=== PATIENT | male | born 1995 | race Caucasian/White ===

== ENCOUNTER 2017-11-23 19:23 | Inpatient (IN) | payer MEDICAID ==
[~2017-11-23] VITALS: Ht 146.1 cm; Wt 43.1 kg
[~2017-11-23 19:23] MED LIST: HYDR2.5C TOPICAL; KETO2CRE TOPICAL; SYNT25TA PO
[2017-11-23 19:37] VITALS: BP 116/60; PULSE 119; RESP 22; TEMP 101.7; O2SAT 94
[2017-11-23] MEDS ORDERED: KETOROLAC TROMETHAMINE 30 MG/ML (IVP) VIAL IV PUSH ONE (21:30)
[2017-11-23] MEDS ORDERED: SODIUM CHLOR 0.9% 1000 ML INJ 1,000 ML IV ONE (21:30)
--- NOTE | 2017-11-23 21:55 | RADRPT ---
EXAM DATE/TIME: 11/23/2017 21:26 [place] COMPARISON: No previous studies available for comparison. INDICATIONS : Fever, cough. MEDICAL HISTORY : Downs Syndrome SURGICAL HISTORY : Open heart ENCOUNTER: Initial ACUITY: 3 days PAIN SCORE: Non-responsive. LOCATION: Bilateral chest FINDINGS: Mild infiltrate in the left lung base, probably lingular. Lungs otherwise appear clear. No pleural ef fusion. No pneumothorax. Heart size stable, within normal limits. Median sternotomy changes are again noted. There is S. shaped thoracolumbar curvature noted, moderate to severe and considerably worse since 201 1. CONCLUSION: Early/mild lingular pneumonia suspected. Worsening scoliosis. Anthony Delgado MD on November 23, 2017 at 21:52 Board Certified Radiologist. This report was verified electronically.
[2017-11-23 22:13] VITALS: PULSE 98; RESP 20; TEMP 100.8; O2SAT 95
--- NOTE | 2017-11-23 22:23 | PD ---
HPI Chief Complaint: Fever Time Seen by Provider: 21:15 Travel History International Travel<30 days: No Contact w/Intl Traveler<30days: No Traveled to known affect area: No History of Present Illness HPI Patient is a 22-year-old male with history of Down syndrome, who is brought in by his mom and someone from his senior care due to fever. The senior care personnel states that he has had a cough for the past few days with runny nose. Today she noticed he was shivering and that he had a fever. They brought him here to be evaluated. Patient provides no history. PFSH Past Medical History Hx Anticoagulant Therapy: No Asthma: Yes ('outgrew' last episode 1 1/2 years ago) Autoimmune Disease: Yes (possibly compromised per mom but no dx from md) Blood Disorders: No Anxiety: No Depression: No Heart Rhythm Problems: No Cardiovascular Problems: Yes (Heart defect) Chemotherapy: No Chest Pain: No Cerebrovascular Accident: No Cystic Fibrosis: No Developmental Delay: Yes (AUTISTIC/DOWNS) Diabetes: No Diminished Hearing: No Gastrointestinal Disorders: No Genitourinary: Yes Headaches: No Hypertension: No Musculoskeletal: Yes Neurologic: Yes (AUTISTIC AND DOWNS) Psychiatric: No Reproductive: No Respiratory: No Integumentary: Yes (PSORIASIS) Immunizations Current: Yes Seizures: No Sickle Cell Disease: No Sleep Apnea: No Thyroid Disease: Yes Tetanus Vaccination: < 5 Years ?: Not Past Surgical History Abdominal Surgery: No Cardiac Surgery: Yes (OPEN HEART TO REPAIR WHOLE IN UPPER CHAMBER OF HEART 2004 ) Ear Surgery: No Endocrine Surgery: No Eye Surgery: No Genitourinary Surgery: No Gynecologic Surgery: No Hysterectomy: No Neurologic Surgery: No Oral Surgery: No Thoracic Surgery: No Other Surgery: No Social History Alcohol Use: No Tobacco Use: No Substance Use: No Allergies-Medications (Allergen,Severity, Reaction): Coded Allergies: cat dander (Unverified Allergy, Severe, 05/28/17) Reported Meds & Prescriptions Reported Meds & Active Scripts Active Reported Hydrocortisone Topical 2.5% Cream 1 Applic TOPICAL BID Ketoconazole Topical 2% Cream 1 Applic TOPICAL BID Synthroid (Levothyroxine Sodium) Unknown Strength Tab Unknown Dose PO DAILY Review of Systems ROS Limitations: Other: (Down syndrome and autism) Physical Exam Narrative GENERAL: Awake and alert, no acute distress. SKIN: Focused skin assessment warm/dry. Psoriatic lesions on the upper and lower extremities. No signs of infection. HEAD: Atraumatic. Normocephalic. EYES: Pupils equal and round. No scleral icterus. ENT: Mucous membranes pink and moist. NECK: Trachea midline. No JVD. CARDIOVASCULAR: Regular rate and rhythm. No murmur appreciated. RESPIRATORY: No accessory muscle use. Clear to auscultation. Breath sounds equal bilaterally. GASTROINTESTINAL: Abdomen soft, non-tender, nondistended. MUSCULOSKELETAL: No obvious deformities. No clubbing. No cyanosis. No edema. NEUROLOGICAL: Awake and alert. No obvious cranial nerve deficits. Moves all of his extremities. He does not speak. Data Data Last Documented VS Vital Signs Date Time Temp Pulse Resp B/P (MAP) Pulse Ox O2 Delivery O2 Flow Rate FiO2 11/23/17 22:13 100.8 98 20 95 Room Air 11/23/17 19:37 116/60 (78) Orders Orders Influenzae A/B Antigen (11/23/17 19:36) Iv Access Insert/Monitor (11/23/17 21:24) Complete Blood Count With Diff (11/23/17 21:24) Comprehensive Metabolic Panel (11/23/17 21:24) Chest, Single Ap (11/23/17 ) Ketorolac Inj (Toradol Inj) (11/23/17 21:30) Sodium Chlor 0.9% 1000 Ml Inj (Ns 1000 M (11/23/17 21:30) Ceftriaxone Inj (Rocephin Inj) (11/23/17 22:30) Azithromycin Inj (Zithromax Inj) (11/23/17 22:30) Blood Culture (11/23/17 22:49) Admit Order (Ed Use Only) (11/23/17 ) Labs Laboratory Tests Test 11/23/17 22:00 White Blood Count 14.2 TH/MM3 Red Blood Count 3.59 MIL/MM3 Hemoglobin 14.7 GM/DL Hematocrit 34.9 % Mean Corpuscular Volume 97.2 FL Mean Corpuscular Hemoglobin 41.0 PG Mean Corpuscular Hemoglobin Concent 42.2 % Red Cell Distribution Width 13.3 % Platelet Count 174 TH/MM3 Mean Platelet Volume 8.1 FL Neutrophils (%) (Auto) 85.8 % Lymphocytes (%) (Auto) 7.8 % Monocytes (%) (Auto) 5.8 % Eosinophils (%) (Auto) 0.2 % Basophils (%) (Auto) 0.4 % Neutrophils # (Auto) 12.2 TH/MM3 Lymphocytes # (Auto) 1.1 TH/MM3 Monocytes # (Auto) 0.8 TH/MM3 Eosinophils # (Auto) 0.0 TH/MM3 Basophils # (Auto) 0.1 TH/MM3 CBC Comment AUTO DIFF Differential Comment AUTO DIFF CONFIRMED Ovalocytes 1+ Blood Urea Nitrogen 12 MG/DL Creatinine 0.84 MG/DL Random Glucose 101 MG/DL Total Protein 7.7 GM/DL Albumin 3.2 GM/DL Calcium Level 8.2 MG/DL Alkaline Phosphatase 96 U/L Aspartate Amino Transf (AST/SGOT) 16 U/L Alanine Aminotransferase (ALT/SGPT) 14 U/L Total Bilirubin 1.1 MG/DL Sodium Level 140 MEQ/L Potassium Level 3.6 MEQ/L Chloride Level 108 MEQ/L Carbon Dioxide Level 27.6 MEQ/L Anion Gap 4 MEQ/L Estimat Glomerular Filtration Rate 116 ML/MIN MDM Medical Decision Making Medical Screen Exam Complete: Yes Emergency Medical Condition: Yes Medical Record Reviewed: Yes Differential Diagnosis Pneumonia versus URI versus influenza Narrative Course Patient is a 22-year-old male who is brought in by his mother and someone from his senior care due to fever and cough. IV established, labs sent. Chest x-ray is concerning for pneumonia. He is given Toradol as well as a dose of Rocephin and azithromycin. Last 24 hours Impressions Chest X-Ray 11/23/17 0000 Signed Impressions: Service Date/Time: Thursday, November 23, 2017 21:26 - CONCLUSION: Early/mild lingular pneumonia suspected. Worsening scoliosis. Anthony Delgado MD Labs show an elevated WBC count to 14. There is concern that due to patient's history of down syndrome and autism he will not be adequately treated as an outpatient as he does not take medications well. He will be admitted for treatment of pneumonia. Diagnosis Primary Impression: Pneumonia Qualified Codes: J18.9 - Pneumonia, unspecified organism Admitting Information Admitting Physician Requests: it Aicha Cisneros MD Nov 23, 2017 22:23
[2017-11-23 22:25] LABS: CHLORIDE 108 MEQ/L (98-107); SODIUM (NA) 140 MEQ/L (136-145)
[2017-11-23 22:29] LABS: ALBUMIN 3.2 GM/DL (3.4-5.0); CALCIUM 8.2 MG/DL (8.5-10.1)
[2017-11-23 22:30] LABS: BICARBONATE 27.6 MEQ/L (21.0-32.0); BLOOD UREA NITROGEN 12 MG/DL (7-18); GLUCOSE,RANDOM 101 MG/DL (74-106)
[2017-11-23] MEDS ORDERED: cefTRIAXone INJ 1,000 MG in SODIUM CHLORIDE 0.9% INJ 100 ML IV ONE (22:30)
[2017-11-23] MEDS ORDERED: AZITHROMYCIN INJ 500 MG in SODIUM CHLOR 0.9% 250 ML INJ 250 ML IV ONE (22:30)
[2017-11-23 22:32] LABS: ALT (GPT) 14 U/L (9-52)
[2017-11-23 22:33] LABS: AST (GOT) 16 U/L (15-39); CREATININE 0.84 MG/DL (0.60-1.30); GLOMERULAR FILTRATION RATE 116 ML/MIN (>89)
[2017-11-23 22:34] LABS: AUTOMATED NEUTROPHIL # 12.2 TH/MM3 (1.8-7.7); BASOPHIL # 0.1 TH/MM3 (0-0.2); BASOPHIL % 0.4 % (0.0-2.0); EOSINOPHIL % 0.2 % (0.0-4.0); HEMATOCRIT 34.9 % (39.0-51.0); HEMOGLOBIN 14.7 GM/DL (13.0-17.0); LYMPH % 7.8 % (9.0-44.0); LYMPHOCYTE # 1.1 TH/MM3 (1.0-4.8); MEAN CELL VOLUME 97.2 FL (80.0-100.0); MEAN PLATELET VOLUME 8.1 FL (7.0-11.0); MONO % 5.8 % (0.0-8.0); MONOCYTE # 0.8 TH/MM3 (0-0.9); NEUT % 85.8 % (16.0-70.0); PLATELET COUNT 174 TH/MM3 (150-450); RED BLOOD COUNT 3.59 MIL/MM3 (4.50-5.90); RED CELL DISTRIBUTION WIDTH 13.3 % (11.6-17.2); TOTAL BILIRUBIN ADULT 1.1 MG/DL (0.2-1.0); TOTAL PROTEIN 7.7 GM/DL (6.4-8.2); WHITE BLOOD COUNT 14.2 TH/MM3 (4.0-11.0)
[2017-11-23 22:35] LABS: ALKALINE PHOSPHATASE 96 U/L (45-117); MEAN CORPUSCULAR HGB CONC 42.2 % (32.0-36.0)
[2017-11-23 23:00] LABS: OVALOCYTES 1+ (NORMAL)
[2017-11-23] MEDS ORDERED: ACETAMINOPHEN 325 MG TAB PO PRN (23:00)
[2017-11-23] MEDS ORDERED: BISACODYL 10 MG SUPP RECTAL PRN (23:00)
[2017-11-23] MEDS ORDERED: NALOXONE HCL 0.4 MG/ML AMP IV PUSH PRN (23:00)
[2017-11-23] MEDS ORDERED: LACTULOSE SYRUP 20 GM/30 ML CUP PO PRN (23:00)
[2017-11-23] MEDS ORDERED: RESP: ALBUTEROL 2.5 MG/IPRATROPIUM 0.5 MG NEB (PRN) NEB (23:00)
[2017-11-23] MEDS ORDERED: MAGNESIUM HYDROXIDE SUSP 30 ML CUP PO PRN (23:00)
[2017-11-23] MEDS ORDERED: ONDANSETRON HCL 4 MG/2 ML VIAL IVP PRN (23:00)
[2017-11-23] MEDS ORDERED: SENNOSIDES 8.6 MG TAB PO PRN (23:00)
[2017-11-23 23:36] VITALS: BP 122/63; PULSE 95; RESP 16; TEMP 99.3; O2SAT 96
[2017-11-24 02:15] VITALS: BP 105/60; PULSE 84; RESP 18; TEMP 97.1; O2SAT 95
[2017-11-24] MEDS: SODIUM CHLOR 0.9% 1000 ML INJ 1,000 ML IV SCH ×3 (02:45→20:50)
[2017-11-24] MEDS: RESP: ALBUTEROL 2.5 MG/IPRATROPIUM 0.5 MG NEB (SCH) NEB ×4 (04:05→21:39)
[2017-11-24 05:42] VITALS: BP 100/52; PULSE 78; RESP 20
[2017-11-24 06:00] VITALS: PULSE 62; RESP 20; TEMP 98
[2017-11-24] MEDS: SODIUM CHLORIDE 0.9% FLUSH 10 ML FLUSH IV FLUSH SCH ×2 (09:00→20:45)
[2017-11-24 09:30] LABS: AUTOMATED NEUTROPHIL # 6.7 TH/MM3 (1.8-7.7); BASOPHIL # 0.1 TH/MM3 (0-0.2); EOSINOPHIL # 0.1 TH/MM3 (0-0.4); EOSINOPHIL % 0.7 % (0.0-4.0); HEMOGLOBIN 12.3 GM/DL (13.0-17.0); LYMPH % 17.5 % (9.0-44.0); LYMPHOCYTE # 1.6 TH/MM3 (1.0-4.8); MEAN CELL VOLUME 92.6 FL (80.0-100.0); MEAN CORPUSCULAR HEMOGLOBIN 31.6 PG (27.0-34.0); MEAN CORPUSCULAR HGB CONC 34.1 % (32.0-36.0); MONO % 9.6 % (0.0-8.0); MONOCYTE # 0.9 TH/MM3 (0-0.9); NEUT % 71.2 % (16.0-70.0); PLATELET COUNT 175 TH/MM3 (150-450); RED BLOOD COUNT 3.89 MIL/MM3 (4.50-5.90); WHITE BLOOD COUNT 9.4 TH/MM3 (4.0-11.0)
[2017-11-24 10:04] LABS: BICARBONATE 26.9 MEQ/L (21.0-32.0); CALCIUM 7.6 MG/DL (8.5-10.1)
[2017-11-24 10:08] LABS: CREATININE 0.73 MG/DL (0.60-1.30)
--- NOTE | 2017-11-24 10:51 | HHI.HP ---
[facility] Vinh Amos MD Admission Diagnosis pneumonia Diagnoses: Chief Complaint: Patient nonverbal, brought for fever Travel History International Travel<30 Days: No Contact w/Intl Traveler <30 Da: No Traveled to Known Affected Are: No History of Present Illness 22-year-old white male being admitted for sepsis secondary to possible pneumonia. History is obtained from the chart records, patient is not adequate historian due to mental impairment, no family at bedside. Patient was in his usual state of health until a few days ago when he was noted to have fever after coming home with his mother from the [place]. Patient was thus brought to the emergency department where he was noted to have a T fever of 101.7. Chest x-ray was obtained which I independently reviewed which shows a mild left lingular infiltrate at best. Blood cultures were obtained, patient was started on Rocephin and azithromycin. IV fluids were started. Nursing denies of any reports of any GI upset. 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, scoliosis Allergies: Coded Allergies: cat dander (Unverified Allergy, Severe, 05/28/17) Family History Unobtainable at this time Social History Has been living in a half-way Physical Exam Vital Signs Vital Signs Date Time Temp Pulse Resp B/P (MAP) Pulse Ox O2 Delivery O2 Flow Rate FiO2 11/24/17 06:00 98.0 62 20 11/24/17 05:42 78 20 100/52 (68) 11/24/17 02:15 97.1 84 18 105/60 (75) 95 11/23/17 23:36 99.3 95 16 122/63 (82) 96 Room Air 11/23/17 22:13 100.8 98 20 95 Room Air 11/23/17 21:07 20 11/23/17 19:37 101.7 119 22 116/60 (78) 94 Physical Exam VS: afebrile GENERAL: Lying in bed pronated with hips highly externally rotated bilaterally and knees flexed, in no acute distress, easily awoken, cooperates SKIN: Warm and dry. Scattered psoriatic plaques over her knees and elbows EYES: No scleral icterus. No injection or drainage. ENT: No nasal bleeding or discharge. Mucous membranes pink and moist. Tongue in chronically protruded position CARDIOVASCULAR: Regular rate and rhythm. no murmurs RESPIRATORY: No accessory muscle use. Clear to auscultation. Breath sounds equal bilaterally. GASTROINTESTINAL: Abdomen soft, non-tender, nondistended. Extremities: No clubbing, cyanosis, or edema. No obvious deformities. MUSCULOSKELETAL: adequate muscle bulk and tone for age and habitus NEUROLOGICAL: Awake and alert. No obvious cranial nerve deficits. No facial droop nor slurred speech noted. PSYCHIATRIC: Appropriate mood and affect; insight and judgment normal. Laboratory Laboratory Tests Test 11/23/17 22:00 11/24/17 08:30 White Blood Count 14.2 9.4 Red Blood Count 3.59 3.89 Hemoglobin 14.7 12.3 Hematocrit 34.9 36.0 Mean Corpuscular Volume 97.2 92.6 Mean Corpuscular Hemoglobin 41.0 31.6 Mean Corpuscular Hemoglobin Concent 42.2 34.1 Red Cell Distribution Width 13.3 13.0 Platelet Count 174 175 Mean Platelet Volume 8.1 8.0 Neutrophils (%) (Auto) 85.8 71.2 Lymphocytes (%) (Auto) 7.8 17.5 Monocytes (%) (Auto) 5.8 9.6 Eosinophils (%) (Auto) 0.2 0.7 Basophils (%) (Auto) 0.4 1.0 Neutrophils # (Auto) 12.2 6.7 Lymphocytes # (Auto) 1.1 1.6 Monocytes # (Auto) 0.8 0.9 Eosinophils # (Auto) 0.0 0.1 Basophils # (Auto) 0.1 0.1 CBC Comment AUTO DIFF DIFF FINAL Differential Comment AUTO DIFF CONFIRMED Ovalocytes 1+ Blood Urea Nitrogen 12 11 Creatinine 0.84 0.73 Random Glucose 101 77 Total Protein 7.7 Albumin 3.2 Calcium Level 8.2 7.6 Alkaline Phosphatase 96 Aspartate Amino Transf (AST/SGOT) 16 Alanine Aminotransferase (ALT/SGPT) 14 Total Bilirubin 1.1 Sodium Level 140 144 Potassium Level 3.6 3.9 Chloride Level 108 114 Carbon Dioxide Level 27.6 26.9 Anion Gap 4 3 Estimat Glomerular Filtration Rate 116 137 Date/Time Source Procedure Growth Status 11/23/17 22:49 Blood Peripheral Aerobic Blood Culture Pending Received 11/23/17 22:49 Blood Peripheral Anaerobic Blood Culture Pending Received 11/23/17 19:10 Nasal Aspirate Influenza Types A,B Antigen (REINA) - Final NEGATIVE FOR FLU A AND B ANTIGEN.... Complete Result Diagram: 11/24/17 0830 11/24/17 0830 Imaging Last Impressions Chest X-Ray 11/23/17 0000 Signed Impressions: Service Date/Time: Thursday, November 23, 2017 21:26 - CONCLUSION: Early/mild lingular pneumonia suspected. Worsening scoliosis. MD Pao Kenney VTE Risk Assessment Pao VTE Risk Assessment: No/Low Risk (score <= 1) Caprini Risk Assessment Model Point Value = 1 Point Value = 2 Point Value = 3 Point Value = 5 Age 41-60 Minor surgery BMI > 25 kg/m2 Swollen legs Varicose veins or History of unexplained or recurrent spontaneous Oral contraceptives or hormone replacement Sepsis (< 1 month) Serious lung disease, including pneumonia (< 1 month) Abnormal pulmonary function Acute myocardial infarction Congestive heart failure (< 1 month) History of inflammatory bowel disease Medical patient at bed rest Age 61-74 Arthroscopic surgery Major open surgery (> 45 min) Laparoscopic surgery (> 45 min) Malignancy Confined to bed (> 72 hours) Immobilizing plaster cast Central venous access Age >= 75 History of VTE Family history of VTE Factor V Leiden Prothrombin [id number] Lupus anticoagulant Anticardiolipin antibodies Elevated serum homocysteine Heparin-induced thrombocytopenia Other congenital or acquired thrombophilia Stroke (< 1 month) Elective arthroplasty Hip, pelvis, or leg fracture Acute spinal cord injury (< 1 month) Prophylaxis Regimen Total Risk Factor Score Risk Level Prophylaxis Regimen 0-1 Low Early ambulation 2 Moderate Order ONE of the following: *Sequential Compression Device (SCD) *Heparin 5000 units SQ BID 3-4 Higher Order ONE of the following medications: *Heparin 5000 units SQ TID *Enoxaparin/Lovenox 40 mg SQ daily (WT < 150 kg, CrCl > 30 mL/min) *Enoxaparin/Lovenox 30 mg SQ daily (WT < 150 kg, CrCl > 10-29 mL/min) *Enoxaparin/Lovenox 30 mg SQ BID (WT < 150 kg, CrCl > 30 mL/min) AND/OR *Sequential Compression Device (SCD) 5 or more Highest Order ONE of the following medications: *Heparin 5000 units SQ TID (Preferred with Epidurals) *Enoxaparin/Lovenox 40 mg SQ daily (WT < 150 kg, CrCl > 30 mL/min) *Enoxaparin/Lovenox 30 mg SQ daily (WT < 150 kg, CrCl > 10-29 mL/min) *Enoxaparin/Lovenox 30 mg SQ BID (WT < 150 kg, CrCl > 30 mL/min) AND *Sequential Compression Device (SCD) Assessment and Plan Assessment and Plan 22-year-old white male admitted for sepsis secondary to possible pneumonia Sepsis -Chest x-ray suggestive of pneumonia, blood cultures drawn, still febrile this morning of 100.8 but improving -IV fluids, antibiotics as below -Obtain urine analysis, reflex culture Possible pneumonia -Continue Rocephin and azithromycin Psoriasis -topical steroid SCD Physician Certification 2 Midnight Certification Type: Admission for Inpatient Services Order for Inpatient Services The services are ordered in accordance with Medicare regulations or non- Medicare payer requirements, as applicable. In the case of services not specified as inpatient-only, they are appropriately provided as inpatient services in accordance with the 2-midnight benchmark. Estimated LOS (days): 2 2 days is the estimated time the patient will need to remain in the hospital, assuming treatment plan goals are met and no additional complications. Post-Hospital Plan: Home Buddy Padilla MD Nov 24, 2017 10:51
[2017-11-24] MEDS: HYDROCORTISONE 2.5% CREAM 30 GM TOPICAL SCH ×2 (11:00→20:50)
[2017-11-24] MEDS: LEVOTHYROXINE SODIUM 88 MCG TAB PO SCH (11:00)
[2017-11-24] MEDS ORDERED: HALOPERIDOL LACTATE 5 MG/ML AMP IM PRN (16:45)
[2017-11-24 20:00] VITALS: BP 106/46; PULSE 62; RESP 18; TEMP 97.6; O2SAT 98
[2017-11-24] MEDS: SODIUM CHLORIDE 0.9% FLUSH 10 ML FLUSH IV FLUSH PRN (20:56)
[2017-11-24] MEDS ORDERED: AZITHROMYCIN INJ 500 MG in SODIUM CHLOR 0.9% 250 ML INJ 250 ML IV SCH (21:00)
[2017-11-24] MEDS: cefTRIAXone INJ 1,000 MG in SODIUM CHLORIDE 0.9% INJ 100 ML IV SCH (23:22)
[2017-11-25] VITALS (7 sets, daily range): BP systolic 106–134; BP diastolic 52–67; PULSE 66–88; RESP 12–26; TEMP 97.2–98.1; O2SAT 95–98
[2017-11-25] MEDS: RESP: ALBUTEROL 2.5 MG/IPRATROPIUM 0.5 MG NEB (SCH) NEB ×4 (03:11→21:46)
[2017-11-25] MEDS: SODIUM CHLORIDE 0.9% FLUSH 10 ML FLUSH IV FLUSH PRN (06:06)
[2017-11-25] MEDS: LEVOTHYROXINE SODIUM 88 MCG TAB PO SCH (06:06)
[2017-11-25] MEDS: SODIUM CHLOR 0.9% 1000 ML INJ 1,000 ML IV SCH ×2 (06:06→14:59)
[2017-11-25] MEDS: SODIUM CHLORIDE 0.9% FLUSH 10 ML FLUSH IV FLUSH SCH ×2 (09:00→20:49)
[2017-11-25] MEDS: HYDROCORTISONE 2.5% CREAM 30 GM TOPICAL SCH ×2 (09:00→20:47)
--- NOTE | 2017-11-25 10:58 | HHI.PR ---
Subjective Remarks RN denies any deterioration since last night. afebrile. Patient eating well Objective Vital Signs Date Time Temp Pulse Resp B/P (MAP) Pulse Ox O2 Delivery O2 Flow Rate FiO2 11/25/17 09:00 97.2 78 12 134/63 (86) 97 11/25/17 04:00 97.6 68 16 125/64 (84) 95 11/25/17 00:00 97.8 66 16 126/67 (86) 98 11/24/17 20:00 97.6 62 18 106/46 (66) 98 I/O 11/24/17 11/24/17 11/24/17 11/25/17 11/25/17 11/25/17 07:00 15:00 23:00 07:00 15:00 23:00 Intake Total 1350 ml 250 ml 1492 ml Balance 1350 ml 250 ml 1492 ml Intake Oral 400 ml IV Total 1350 ml 250 ml 1092 ml Bladder Scan Volume Amount 92 ml # Voids 1 3 3 4 Result Diagram: 11/24/17 0830 11/24/17 0830 Objective Remarks clear lungs BL, unlabored breathing, no cyanosis, no acute distress A/P Assessment and Plan 22-year-old white male admitted for sepsis secondary to possible pneumonia Sepsis -Clinically improving, blood cultures are still pending, now afebrile Pneumonia -Continue Rocephin and azithromycin Psoriasis -topical steroid Buddy Graves MD Nov 25, 2017 10:58
[2017-11-25] MEDS: cefTRIAXone INJ 1,000 MG in SODIUM CHLORIDE 0.9% INJ 100 ML IV SCH (20:49)
[2017-11-25] MEDS ORDERED: AZITHROMYCIN 250 MG TAB PO SCH (21:00)
[2017-11-25] MEDS ORDERED: HALOPERIDOL LACTATE 5 MG/ML AMP IM ONE (23:00)
[2017-11-26 00:18] VITALS: BP 131/61; PULSE 80; RESP 16; O2SAT 96
[2017-11-26] MEDS: RESP: ALBUTEROL 2.5 MG/IPRATROPIUM 0.5 MG NEB (SCH) NEB ×2 (04:00→09:58)
[2017-11-26] MEDS: LEVOTHYROXINE SODIUM 88 MCG TAB PO SCH (06:02)
[2017-11-26 08:00] VITALS: BP 152/93; PULSE 78; RESP 20; TEMP 98.9; O2SAT 97
[2017-11-26] MEDS: SODIUM CHLORIDE 0.9% FLUSH 10 ML FLUSH IV FLUSH SCH (09:51)
[2017-11-26] MEDS: HYDROCORTISONE 2.5% CREAM 30 GM TOPICAL SCH (09:51)
[2017-11-26 09:59] VITALS: O2SAT 94
[2017-11-26] MEDS ORDERED: AZIT250T3 PO (11:55)
[2017-11-26] MEDS ORDERED: CEFD300C PO (11:55)
--- NOTE | 2017-11-26 11:55 | HHI.DCPOC ---
Discharge Care Plan Diagnosis: (1) Pneumonia Goals to Promote Your Health * To prevent worsening of your condition and complications * To maintain your health at the optimal level Directions to Meet Your Goals Take your medications as prescribed Follow your dietary instruction Follow activity as directed Keep your appointments as scheduled Take your immunizations and boosters as scheduled If your symptoms worsen call your PCP, if no PCP go to Urgent Care Center or Emergency Room Smoking is Dangerous to Your Health. Avoid second hand smoke Call the 24-hour hour crisis hotline for domestic abuse at Buddy Padilla MD Nov 26, 2017 11:55
--- NOTE | 2017-11-26 11:59 | HHI.DS ---
Discharge Summary Admission Date Nov 23, 2017 at 23:01 Discharge Date: Nov 26, 2017 Admitting Diagnosis pneumonia (1) Lingular pneumonia ICD Code: J18.9 - Pneumonia, unspecified organism Procedures none Brief History - From Admission 22-year-old white male being admitted for sepsis secondary to possible pneumonia. History is obtained from the chart records, patient is not adequate historian due to mental impairment, no family at bedside. Patient was in his usual state of health until a few days ago when he was noted to have fever after coming [facility] with [facility]. Patient was thus brought to the emergency department where he was noted to have a T fever of 101.7. Chest x-ray was obtained which I independently reviewed which shows a mild left lingular infiltrate at best. Blood cultures were obtained, patient was started on Rocephin and azithromycin. IV fluids were started. Nursing denies of any reports of any GI upset. CBC/BMP: 11/24/17 0830 11/24/17 0830 Significant Findings Laboratory Tests Test 11/23/17 22:00 11/24/17 08:30 White Blood Count 14.2 TH/MM3 (4.0-11.0) Red Blood Count 3.59 MIL/MM3 (4.50-5.90) 3.89 MIL/MM3 (4.50-5.90) Hematocrit 34.9 % (39.0-51.0) 36.0 % (39.0-51.0) Mean Corpuscular Hemoglobin 41.0 PG (27.0-34.0) Mean Corpuscular Hemoglobin Concent 42.2 % (32.0-36.0) Neutrophils (%) (Auto) 85.8 % (16.0-70.0) 71.2 % (16.0-70.0) Lymphocytes (%) (Auto) 7.8 % (9.0-44.0) Neutrophils # (Auto) 12.2 TH/MM3 (1.8-7.7) Ovalocytes 1+ (NORMAL) Albumin 3.2 GM/DL (3.4-5.0) Calcium Level 8.2 MG/DL (8.5-10.1) 7.6 MG/DL (8.5-10.1) Total Bilirubin 1.1 MG/DL (0.2-1.0) Chloride Level 108 MEQ/L (98-107) 114 MEQ/L (98-107) Anion Gap 4 MEQ/L (5-15) 3 MEQ/L (5-15) Hemoglobin 12.3 GM/DL (13.0-17.0) Monocytes (%) (Auto) 9.6 % (0.0-8.0) Imaging Last Impressions Chest X-Ray 11/23/17 0000 Signed Impressions: Service Date/Time: Thursday, November 23, 2017 21:26 - CONCLUSION: Early/mild lingular pneumonia suspected. Worsening scoliosis. Anthony Delgado MD PE at Discharge clear lungs BL, unlabored breathing Hospital Course Admitted with IVFs and telemetry and started on antibiotics. Fever resolved and patient is tolerating p.o. intake well. urinary cath was attempted but was aborted since the patient was very resistant to such. Blood cultures were negative 48 hours. Patient has met maximal benefit from hospitalization and is clinically stable for discharge. Pt Condition on Discharge: Stable Discharge Disposition: Discharge Home Discharge Time: <= 30 minutes Discharge Instructions DIET: Follow Instructions for: As Tolerated, No Restrictions Activities you can perform: Weight Bearing as Suzanne Follow up Referrals: PCP Follow-up - 1 Week New Medications: Azithromycin (Azithromycin) 250 Mg Tab 250 MG PO DAILY for Infection, #3 TAB 0 Refills Cefdinir (Cefdinir) 300 Mg Cap 600 MG PO DAILY for Infection, #8 CAP 0 Refills Continued Medications: Hydrocortisone Topical (Hydrocortisone Topical) 2.5% Cream 1 APPLIC TOPICAL BID for Rash/Inflammation, GM 0 Refills Ketoconazole Topical (Ketoconazole Topical) 2% Cream 1 APPLIC TOPICAL BID for Fungal Infection, #15 GM 0 Refills Levothyroxine (Synthroid) Unknown Strength Tab 88 PO DAILY for Thyroid, #30 TAB 0 Refills Buddy Padilla MD Nov 26, 2017 11:59
[2017-11-26 12:00] VITALS: BP 123/59; PULSE 87; RESP 20; TEMP 98.4; O2SAT 96
== END 2017-11-26 12:44 | disposition home or self-care (01) | DRG 871 ==
LOC: PHED 19:23 → PHEDA 23:01 → PHICU 11-24 02:50 → PH3B 11-26 00:25
PROVIDERS: ADMIT Hospitalist; ATTEND Hospitalist
DX: A41.9 Sepsis, unspecified organism (principal); J18.9 Pneumonia, unspecified organism; F84.0 Autistic disorder; Q90.9 Down syndrome, unspecified; M41.9 Scoliosis, unspecified; L40.9 Psoriasis, unspecified
CPT/HCPCS: 71045; 80048; 80053; 85025; 87040; 87077; 87186; 87205; 87804; 94640; 94664; 96361; 96374; 96375; J0456; J0696; J1630; J1885; J7030; J7050